=== PATIENT | female | born 1965 | race Hispanic/Latino ===

== ENCOUNTER 2016-04-29 00:48 | Emergency (ER) | payer OTHER ==
[~2016-04-29 00:48] MED LIST: CIPR-232 PO; CLAR500T PO; DIPH25CA6 PO; DOCU-41 PO; EXCEDRINE MIGRAINE PO; HYDR-4003 PO; LANS30CA PO; LORA10CA PO; OXYB5TAB10 PO; OXYC1TAB24 PO
[2016-04-29 00:50] VITALS: BP 159/95; PULSE 73; RESP 16; O2SAT 99
--- NOTE | 2016-04-29 01:15 | ED.REPORT ---
HPI-Headache Date of Service Apr 29, 2016 ED Provider: Ramu Olivas MD Pt is a 50 year old female who presents to the ED with complaints of a dull whole-cranial headache that started 2 weeks ago. She reports that the headache waxes and wanes and is worst when she is eating or drinking. Pt states that she is noticing some mild visual changes, and mild nausea. Pt denies any photophobia. She has had a 2 week long headache once in the past, similar in characterization. She was recently seen by her PCP and given a prescription for Rizatriptan. This has not alleviated her symptoms. She has no other complaints. Nursing Notes Stated Complaint: HEADACHE Chief Complaint: General Complaint Nursing Notes Reviewed: Yes Allergies: Coded Allergies: Opioids - Morphine Analogues (Unverified Allergy, Intermediate, ITCHING, ) REQUIRES BENADRYL WITH ADMIN NSAIDS (Non-Steroidal Anti-Inflamma (Verified Adverse Reaction, Severe, upset stomach, 04/29/16) codeine (Verified Adverse Reaction, Severe, ITCHING, 04/29/16) fluoxetine (Unverified Adverse Reaction, Severe, HEADACHE, 04/29/16) hydrocodone (Verified Adverse Reaction, Severe, ITCHING, 04/29/16) tramadol (Verified Adverse Reaction, Severe, HEADACHE AND RINGING IN EARS , 04/29/16) Tetracyclic Antidepressants (Verified Adverse Reaction, Intermediate, HEADACHE, 04/29/16) Scheduled ([Excedrine Migraine]) 250 MG PO PRN Ciprofloxacin (Cipro) 250 Mg Tablet 250 MG PO BID Clarithromycin (Clarithromycin) 500 Mg Tablet 500 MG PO BID Lansoprazole (Lansoprazole) 30 Mg Capsule.dr 30 MG PO DAILY Oxybutynin Chloride (Oxybutynin Chloride) 5 Mg Tablet 5 MG PO TID Scheduled PRN Docusate Sodium (Colace) 100 Mg Capsule 100 MG PO BID PRN PRN For Constipation Hydrocodone-Acetaminophen 5-325 mg (Hydrocodone-Acetaminophen 5-325 mg) 1 Each Tablet 1 TABLET PO Q4H PRN PRN For Pain Loratadine (Claritin) 10 Mg Capsule 10 MG PO DAILY PRN PRN ALLERGIES diphenhydrAMINE HCl (Benadryl) 25 Mg Capsule 25 MG PO Q4 PRN PRN For Itching oxyCODONE-Acetaminophen 5-325 mg (oxyCODONE-Acetaminophen 5-325 mg) 1 Each Tablet 1-2 TAB PO Q4H PRN PRN For Moderate Pain General Time Seen by MD: 01:00 Chief Complaint Headache Hx Obtained From: Patient Arrived By: Walk-in Sudden in Onset?: Yes Onset Occurred: More than a week ago... (2 weeks) Symptom Duration: Waxes and wanes Location: : Generalized Quality: Painful Severity: Current: Mild Severity: Maximum: Moderate Similar Sx Previous: Yes Past Medical History Past Medical History Epiploic Appendagitis - diagnosed 2015 Renal stones Menorrhagia Several episodes of hematuria Endometriosis GERD Reports: Migraines Past Surgical History endometrial ablation Hysterectomy w/ bladder perforation Reports: Family History Noncontributory Smoking History Never Smoker Social History Alcohol Use: Denies alcohol use Drug Use: Denies drug use Other Social History: Good social support, Lives with children, Local resident Occupation lives with 3 children, 26,15 and 3, no work or school Ambulatory Status Independent Review of Systems Constitutional: Denies: Chills, Fever, Malaise, Weakness - generalized GI: Reports: Nausea, Denies: Abdominal pain, Constipation, Diarrhea, Vomiting Musculoskeletal: Denies: Back pain, Neck pain Neurologic: Reports: Headache, Denies: Change LOC, Syncope Complete sys rev & neg: except as marked. Physical Exam Initial Vital Signs Vital Signs (First) Date Time Temp Pulse Resp B/P Pulse Ox O2 Delivery O2 Flow Rate FiO2 04/29/16 00:50 36.5 73 16 159/95 99 Room Air Initial VS: Reviewed ENT: Mucous membranes moist, Conjunctiva normal, No scleral icterus Respiratory: Breath sounds normal, Clear to auscultation, No respiratory distress Cardiovascular: Regular rate & rhythm, Heart sounds normal, Intact distal pulses Skin: Warm, Dry, No cyanosis General/Constitutional: Awake, Alert, No acute distress, Well appearing, Cooperative Head / Eyes: Atraumatic, Normocephalic, PERRL, No nystagmus Neck: Atraumatic, Supple, Full range of motion Neurologic: Oriented X3, Speech NL, No motor deficits, No sensory deficits, CN II - XII intact, Cerebellar NL, Memory NL Re-Eval/Medical Decision Source of Hx: Old records Counseled Regarding: Diagnosis, Lab results, Need for follow-up, When/why to return to ED Discharge & Departure Impression: Primary Impression: Headache Headache type: tension-type Headache chronicity pattern: acute headache Intractability: not intractable Qualified Code: G44.209 - Tension-type headache, unspecified, not intractable Disposition: Home Discharge Condition All VS Reviewed: Yes Condition: Stable Patient Instructions: Acute Headache (ED) Additional Instructions: You received IV saline, IV diphenhydramine, IV prochlorperazine, IV ketorolac, and IV ondansetron with good relief of your headache. Home to sleep. Follow- up with your regular doctor as needed for persistent symptoms or return to the emergency room over the weekend if he worsens significantly. Referrals: Mendoza Tejeda DO (PCP) Bhavya Attestation Portions of this note were transcribed by Aneta Rangel. I, Dr. Olivas personally performed the history, physical exam and medical decision-making; I reviewed and confirmed the accuracy of the information in the transcribed note. Signed by: Bhavya Sanchez, 04/28/2016 [Time] copies to: Mendoza Tejeda Howard L MD Apr 29, 2016 01:15 ORLY RANGEL Apr 29, 2016 01:49
[2016-04-29] MEDS ORDERED: 0.9% Sodium Chloride 1,000 ML IV ONE (02:41)
[2016-04-29] MEDS ORDERED: ProchlorPERazine 5 mg/mL 2 mL Inj IVPUSH ONE (02:45)
[2016-04-29] MEDS ORDERED: Ondansetron 2 mg/mL 2 mL Inj IVPUSH ONE (02:45)
[2016-04-29 04:30] VITALS: BP 139/79; PULSE 73; RESP 16; O2SAT 99
== END 2016-04-29 04:30 | disposition home or self-care (01) ==
LOC: SED 00:48
DX: G44.209 Tension-type headache, unspecified, not intractable (principal); H53.8 Other visual disturbances; R11.0 Nausea; K21.9 Gastro-esophageal reflux disease without esophagitis; Z88.5 Allergy status to narcotic agent; Z88.6 Allergy status to analgesic agent; Z88.8 Allergy status to other drugs, medicaments and biological substances
CPT/HCPCS: 96361; 96374; 96375; 99284; J0780; J1200; J2405; J7030

== ENCOUNTER 2016-06-16 13:57 | Emergency (ER) | payer OTHER ==
[2016-06-16 14:01] VITALS: BP 120/65; PULSE 77; RESP 16; O2SAT 98
[2016-06-16] MEDS ORDERED: AMIT10TA6 PO (14:04)
--- NOTE | 2016-06-16 16:51 | ED.REPORT ---
HPI-NVD Date of Service Jun 16, 2016 ED Provider: Tomasz White PA-C Otherwise healthy 50-year-old female presents with chief complaint nausea vomiting and diarrhea. States that she returned from a visit to [place] on Sunday. 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 On Sunday her youngest child became ill in the next day both she and her oldest child became ill. Symptoms began with vomiting without blood and progressed to watery diarrhea without blood or mucus. Admits epigastric abdominal pain, malaise, anorexia. Denies fever. Nursing Notes Stated Complaint: VOMITING Chief Complaint: Female Abdominal Pain Nursing Notes Reviewed: Yes Allergies: Coded Allergies: Opioids - Morphine Analogues (Unverified Allergy, Intermediate, ITCHING, ) REQUIRES BENADRYL WITH ADMIN NSAIDS (Non-Steroidal Anti-Inflamma (Verified Adverse Reaction, Severe, upset stomach, 04/29/16) codeine (Verified Adverse Reaction, Severe, ITCHING, 04/29/16) fluoxetine (Unverified Adverse Reaction, Severe, HEADACHE, 04/29/16) hydrocodone (Verified Adverse Reaction, Severe, ITCHING, 04/29/16) tramadol (Verified Adverse Reaction, Severe, HEADACHE AND RINGING IN EARS , 04/29/16) Tetracyclic Antidepressants (Verified Adverse Reaction, Intermediate, HEADACHE, 04/29/16) Scheduled Amitriptyline (Amitriptyline) 10 Mg Tablet 1-3 TAB PO HS Ondansetron ODT (Ondansetron ODT) 8 Mg Tab.rapdis 8 MG PO TID General Time Seen by MD: 15:56 Chief Complaint Diarrhea Past Medical History Past Medical History Epiploic Appendagitis - diagnosed 2015 Renal stones Menorrhagia Several episodes of hematuria Endometriosis GERD Reports: Migraines Past Surgical History endometrial ablation Hysterectomy w/ bladder perforation Reports: Family History Noncontributory Smoking History Never Smoker Social History Alcohol Use: Denies alcohol use Drug Use: Denies drug use Other Social History: Good social support, Lives with children, Local resident Occupation lives with 3 children, 26,15 and 3, no work or school Ambulatory Status Independent Review of Systems Review of Systems Note: Negative unless stated otherwise in history of present illness Physical Exam General: Well appearing, well developed, obese, no acute distress. Head: Atraumatic, normocephalic. Eyes: No scleral icterus or injection. No discharge. Vision grossly intact. ENT: Voice clear, hearing grossly intact. Respiratory: Regular rate and rhythm. Breath sounds present, clear to auscultation and equal bilaterally. No respiratory distress. No increased work of breathing, speaks in complete sentences. Cardiovascular: Regular rate and rhythm, without murmur, gallop or rub. No pedal edema. Gastrointestinal: Obese abdomen non-tender without guarding or rebound. Bowel sounds normoactive. Skin: Warm and dry. Neurological: Grossly nonfocal. Psychological: Alert and oriented. Speech appropriate, linear and logical. Behavior appropriate. Initial Vital Signs Vital Signs (First) Date Time Temp Pulse Resp B/P Pulse Ox O2 Delivery O2 Flow Rate FiO2 06/16/16 14:01 36.5 77 16 120/65 98 Room Air Initial VS: Vital signs normal Re-Eval/Medical Decision Med Decision/Clinical Course Otherwise healthy 50-year-old female presents with her family, all of whom complain of nausea and vomiting upon returning from a trip to [place] approximately 4 days ago. Physical examination is benign, normal vital signs. Patient appears well. Youngest child is been seen at the urgent care and stool cultures sent. No results yet. History highly suggestive of viral gastroenteritis. Little concern for C. difficile, bacterial gastritis, diverticulitis, appendicitis, Giardia. Discharge with instructions for primary care follow-up, prescription for Zofran, emergency return precautions. Patient verbalizes understanding and consented to plan. Discharge & Departure Impression: Primary Impression: Viral gastroenteritis Disposition: Home Discharge Condition All VS Reviewed: Yes Condition: Stable Patient Instructions: Gastroenteritis (ED) Additional Instructions: Evaluation in the emergency department for nausea and vomiting. History and physical are reassuring that this is most likely viral gastroenteritis, which should resolve on its own in the next few days. I recommend taking small amounts of fluid throughout the day and eating mild food. I will prescribe ondansetron to help with nausea. Follow up with your primary care provider if symptoms have not resolved by Sunday. Return to emergency department for new or worsening symptoms including the onset of fever, development of bloody diarrhea, increasing pain. Referrals: Mendoza Tejeda DO (PCP) EDSupervising Provider for APC: Ryan Archuleta DO copies to: Mendoza Tejeda Seth PA-C Jun 16, 2016 16:51
[2016-06-16] MEDS ORDERED: ONDA8TAB10 PO (16:52)
[2016-06-16 17:07] VITALS: BP 122/67; PULSE 73; RESP 16; O2SAT 99
[2016-06-16 17:32] VITALS: BP 122/67; PULSE 73; RESP 16; O2SAT 99
== END 2016-06-16 17:32 | disposition home or self-care (01) ==
LOC: SED 13:57
DX: A08.4 Viral intestinal infection, unspecified (principal); K21.9 Gastro-esophageal reflux disease without esophagitis; Z88.5 Allergy status to narcotic agent; Z88.6 Allergy status to analgesic agent